=== PATIENT | male | born 1960 | race Two or more races ===

== ENCOUNTER 2017-04-30 06:58 | Day surgery (SDC) | payer OTHER ==
[2017-04-30] MEDS ORDERED: fentaNYL 100 MCG/2 ML VIAL IVP ONE (07:05)
[2017-04-30] MEDS ORDERED: DEXTROSE 5% 1,000 ML IV ONE (07:05)
[2017-04-30] MEDS ORDERED: LACTATED RINGERS 1,000 ML IV ONE (07:05)
[2017-04-30] MEDS ORDERED: MIDAZOLAM 2 MG/2 ML VIAL IVP ONE (07:05)
[2017-04-30 08:45] VITALS: BP 122/81
== END 2017-04-30 06:59 | disposition home or self-care (01) ==
LOC: SDS 06:58
PROVIDERS: ATTEND Surgery
PROC: 0DJD8ZZ Inspection of Lower Intestinal Tract, Via Natural or Artificial Opening Endoscopic (ICD-10-PCS; principal; 2017-04-30 08:15)
DX: Z12.11 Encounter for screening for malignant neoplasm of colon (principal); K64.8 Other hemorrhoids; I10 Essential (primary) hypertension; E11.9 Type 2 diabetes mellitus without complications; Z79.4 Long term (current) use of insulin; Z79.82 Long term (current) use of aspirin
CPT/HCPCS: 45378; J7120

== ENCOUNTER 2018-11-10 09:22 | Outpatient (CLI) | payer OTHER ==
--- NOTE | 2018-11-10 15:23 | Ultrasound Report ---
Reason: RENAL INSUFFICIENCY Procedure Date: 11/10/2018 Accession Number: [id number] / [id number] Procedure: US - Retroperitoneal CPT Code: FULL RESULT: EXAM: RENAL ULTRASOUND. EXAM DATE: 11/10/2018 11:18 AM. CLINICAL HISTORY: Renal insufficiency. COMPARISON: None. TECHNIQUE: Real-time scanning was performed with static images obtained. FINDINGS: Right Kidney: 10 x 4.1 x 4.8 cm. Normal echotexture with no contour deforming masses or hydronephrosis. Nonobstructing 3 mm stone seen in the mid to lower pole. Incidental 9 mm simple cyst upper pole. Left Kidney: 10.5 x 4.8 x 5.1 cm. Normal echotexture with no contour deforming masses or hydronephrosis. Nonobstructive nephrolithiasis noted in the inferior and medial kidney largest measures 4 mm. 2 subcentimeter anechoic cysts noted of the mid pole lateral kidney and inferior. Bladder: Bilateral jets seen. The prevoid bladder volume was 777 cc. The postvoid bladder volume was 56.2 cc. Other: None. IMPRESSION: 1. Bilateral nonobstructive nephrolithiasis, largest single stone 4 mm in size. 2. Small bilateral simple cysts. 3. Post voiding residual of 56 cc. [facility]
== END 2018-11-10 09:23 | disposition home or self-care (01) ==
LOC: DI 09:22
PROVIDERS: ATTEND Internal Medicine
DX: N18.9 Chronic kidney disease, unspecified (principal); N20.0 Calculus of kidney; Q61.02 Congenital multiple renal cysts
CPT/HCPCS: 76770